=== PATIENT | male | born 1950 | race Caucasian/White ===

== ENCOUNTER 2023-02-19 06:10 | Day surgery (SDC) | payer MEDICARE, BC, SELFPAY ==
[2023-02-19] MEDS: KETOROLAC OPHTH 0.5% 1 DROP EYE-RIGHT ×3 (06:24→06:57)
[2023-02-19] MEDS: TETRACAINE 0.5% OPHTH 1 DROP EYE-RIGHT ×2 (06:24→06:40)
[2023-02-19 06:36] VITALS: BP 124/55; PULSE 62; RESP 16; TEMP 36.3; O2SAT 96
[2023-02-19 06:37] VITALS: BMI 37.9
--- NOTE | 2023-02-19 06:57 | SUR.PREOP ---
The eye drops brought by the patient (Ketorolac and Prednisolone) are examined and I have determined they are labeled by the patient's pharmacy for this patient as prescribed by the surgeon. The bottles are intact, recently obtained and appear to be correct. Shree MEJIA
[2023-02-19] MEDS: SODIUM CHLORIDE 0.9 % (FLUSH) 10 ML SYRINGE IVF (07:03)
[2023-02-19] MEDS: TETRACAINE 0.5% OPHTH 2 DROP EYE-RIGHT (07:12)
[2023-02-19] MEDS: TETRACAINE 0.5% OPHTH 2 DROP EYE-LEFT (07:12)
[2023-02-19] MEDS: BALANCED SALT IRRIG SOLN 15 ML EYE-RIGHT (07:20)
--- NOTE | 2023-02-19 07:22 | P.ANES_ITS ---
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
--- NOTE | 2023-02-19 07:29 | SUR.OPER ---
DURING RIGHT EYE PREP, BETADINE SOLUTION DRIPPED IN TO PATIENTS LEFT EYE. Holly CROSS GAVE THE VERBAL ORDER TO APPLY TETRACAINE, TWO DROPS IN PATIENTS LEFT EYE TO PROVIDE PAIN RELIEF. SEE MAR FOR DRUG DETAILS.
[2023-02-19 07:48] VITALS: BP 134/66; PULSE 61; RESP 16; TEMP 36.6; O2SAT 96
--- NOTE | 2023-02-19 08:07 | W.ANESCHARGE ---
Anesthesia Charges Start Date/Time Anesthesia Start Date: 02/19/23 Anesthesia Start Time: 07:07 Stop Date/Time Anesthesia Stop Date: 02/19/23 Anesthesia Stop Time: 07:48 Summary Extremes of Age - Over 70 or under 1: MDA
--- NOTE | 2023-02-19 10:22 | P.OPTPRC_ITS ---
Procedure Note Date of procedure: 02/19/[address] [facility] bill your pro fee for this procedure?: Yes Procedure Description: SURGEON: Luzma Smith MD PREOPERATIVE DIAGNOSIS: Nuclear sclerotic cataract, right eye. POSTOPERATIVE DIAGNOSIS: Nuclear sclerotic cataract, right eye. NAME OF OPERATION: Phacoemulsification of cataract with posterior chamber intraocular lens implantation in the right eye. ANESTHESIA: Topical. ESTIMATED BLOOD LOSS: Less than 2 cc. COMPLICATIONS: None. PATHOLOGY SPECIMEN: None. INDICATIONS: See consult note for details. The risks, benefits and alternatives of the procedure were explained to the patient, who elected to proceed and s igned informed consent to do so. PROCEDURE: The patient was brought to the pre-holding area where the right eye was identified as the operative eye. I placed my initials above this eye. The patient received eye drops consisting of 0.5% tetracaine, 1% tropicamide, 10% phenylephrine, and 0.5% ketorolac. The patient was then brought to the operating room where the right eye was again identified as the operative eye. The eye was prepped with Betadine and draped in the usual sterile ophthalmic fashion. A #15 super-sharp blade was used to create a paracentesis site. 1% non-preserved intracameral lidocaine was injected into the anterior chamber. Endocoat was injected into the anterior chamber. A 2.4 mm keratome was used to create a three-plane self-sealing incision 1 mm anterior to the temporal limbus. A cystotome was used to create an anterior capsular leaflet. The Utrata forceps were used to extend this to form a continuous curvilinear capsulorrhexis. Hydrodissection was performed. The cataract was removed with phacoemulsification using the [id number] technique. The irrigation and aspiration tip was used to remove the remaining cortex. Healon was injected into the capsular bag. An LOUIS ZCB00 intraocular lens of 12.5 diopters was injected into the capsular bag. The irrigation and aspiration tip was used to remove the remaining viscoelastic. Balanced salt solution on a cannula was used to hydrate the wound, and the wound was found to be watertight. The pupil was noted to be round. DISPOSITION: The patient was taken to the recovery room and discharged to home in stable condition. The patient was instructed to call me or go to the emergency department with any sudden change, including dramatic loss of vision, severe pain in the eye or eyebrow region, nausea, or vomiting. The patient will follow up in the clinic tomorrow morning.
== END 2023-02-19 08:08 | disposition home or self-care (01) ==
PROVIDERS: PCP Family Medicine; Visit Provider Ophthalmology
PROC: (CPT 66984; principal; 2023-02-19 06:15)
DX: H25.11 Age-related nuclear cataract, right eye (principal)
CPT/HCPCS: 66984; 00142; 82962; 99100; J2250; J3010; V2632

== ENCOUNTER 2025-02-25 09:08 | Outpatient (CLI) | payer MEDICARE, BC, SELFPAY ==
--- NOTE | 2025-02-25 11:09 | P.ANES_ITS ---
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
--- NOTE | 2025-02-25 11:09 | W.ANESCHARGE ---
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
--- NOTE | 2025-02-25 11:44 | P.ANES_ITS ---
Anesthesia Charges Start Date/Time Anesthesia Start Date: 02/25/25 Anesthesia Start Time: 10:31 Stop Date/Time Anesthesia Stop Date: 02/25/25 Anesthesia Stop Time: 11:08 Summary Extremes of Age - Over 70 or under 1: MDA Coding CPT Codes CPT Codes: ANES LWR INTST SCR COLSC - 76775 ([id number]) QK - MVA REACTOR OPERATOR HEAD 2-4 CNCRNT ANES PROC, QX - PASTORAL MINISTRIES PROFESSOR SVC W/ MD MED DIRECTION, P3 - PATIENT W/SEVERE SYS DISEASE Additional Codes: Summary - Extremes of Age - Over 70 or under 1: MDA ([id number])
--- OUTSIDE RECORDS SUMMARY | 2025-02-26 00:49 | XMS_ITS | Clinical Summary ---
Author Organization [facility] Address [address] [place] [address] Care Team Providers Care Corporate Safety Coordinator Name Role Phone Tommie Mckeon MD Primary Care Provider Jasmin Alonso CASINO DUTY MANAGER Unavailable [phone] Allergies Active Allergy Reactions Criticality Noted Date Comments Codeine 11/15/2006 jitters Lisinopril Hyperkalemia 11/03/2017 Triamterene Other - Describe In Comment Field 04/14/2013 Mildly elevated potassium Medications B COMPLEX 1 TAB take 1 po daily 01/25/20 09 Active cholecalciferol (VITAMIN D) 1,000 unit tablet Take 1 tablet by mouth once daily. 0 11/28/19 11 Active lancetsIndication s:Type 2 diabetes mellitus without complication, without long-term current use of insulin (HC) Dispense item covered by pt ins. E11.9 NIDDM type II - Test 3 times a day 3 days a week 100 Each 3 10/16/19 17 Active blood-glucose meterIndications: Type 2 diabetes mellitus without complication, without long-term current use of insulin (HC) Dispense meter, test strips, lancets covered by pt ins. E11.9 NIDDM type II - Test 3 times a day 3 days a week 1 Device 10/16/19 17 Active EASY TOUCH 32 gauge x 1/4Indications:L ow testosterone USE TO ADMINISTER VICTOZA ONCE DAILY 24 Each 10/14/19 18 Active Insulin [place], Disposable, (Pen Needle) 32 gauge x 32Indications: Type 2 diabetes mellitus without complication, without long-term current use of insulin (HC) As directed. Remove the 2 covers on the insulin pen needle before administering insulin dose. 100 Each 3 11/20/19 23 Active CPAPIndications:O bstructive sleep apnea Replacement CPAP machine for home use at pressure: 6-12.8 cmw , Heated humidifier x 1 q 5 yr, Humidifier chamber x 1 q 6 mo, Full face mask x1 q 3mos, with cushion x 1 q mo, Heated tubing x 1 q 3 mo, Headgear x 1 q 6 mo, Filters: Disposable x 2 q mo non-disposable filters x1 q 6mo, Length of Need: 99 months, Frequency of use: Daily 1 Each 11 05/13/20 23 Active Roxie Disp [place] 61Io6-1/2 22 gauge x 1 09/09 ndleIndications:L ow testosterone USE DIRECTED TO ADMINISTER TESTOSTERONE EVERY 2 WEEKS 6 Each 3 07/21/20 23 Active fluticasone (50 mcg per actuation) nasal solution (FLONASE)Indicati ons:Rhinitis, unspecified type Inhale 2 Sprays to both nostrils once daily. 16 g 3 09/11/19 24 Active atorvastatin (LIPITOR) 40 mg tabletIndications :Mixed hyperlipidemia Take 1 Tablet (40 mg) by mouth once daily. 90 Tablet 3 06/17/20 24 Active buPROPion (WELLBUTRIN SR) 200 mg sustained-release tabletIndications :Adjustment disorder with depressed mood Take 1 Tablet (200 mg) by mouth two times daily. 180 Tablet 3 06/17/20 24 Active FLUoxetine (PROZAC) 20 mg capsuleIndication s:Adjustment disorder with depressed mood TAKE FOUR CAPSULES BY MOUTH ONCE EVERY DAY IN THE MORNING. 360 Capsule 3 06/17/20 24 Active hydroCHLOROthiazi de 25 mg tabletIndications :Hypertension, unspecified type Take 1 Tablet (25 mg) by mouth once daily. 90 Tablet 3 06/17/20 24 Active testosterone cypionate (DEPO-TESTOSTERON E) 200 mg/mL injectionIndicati ons:Low testosterone INJECT 1 ML INTRAMUSCULARLY EVERY TWO WEEKS DIRECTED 10 mL 2 06/25/20 24 Active Syringe with Cannula,Disposabl 3 mL 18 x 1 syrgIndications:L ow testosterone use to draw up testosterone from the vial every 2 weeks 10 Each 3 06/29/20 24 Active Syringe with Needle, Disp, (B-D 3cc Luer-Remedios Syr 25Gx1) 3 mL 25 gauge x 1 syrgIndications:L ow testosterone As directed. 6 Each 3 07/01/20 24 Active needle, disp, 21 g (BD Regular Bevel [place]) 21 gauge x 1 1/2 ndleIndications:L ow testosterone USE DIRECTED TO DRAW UP TESTOSTERONE EVERY 2 WEEKS 7 Each 3 08/17/20 24 Active polyethylene glycol-electrolyt e (GOLYTELY) 236-22.74-6.74 -5.86 gram suspensionIndicat ions:Encounter for screening colonoscopy Drink 2 liters (half the bottle) the day before colonoscopy and 2 liters (remaining prep) 6 hours prior to colonoscopy appointment. 4000 mL 10/01/19 25 Active albuterol HFA (Ventolin HFA) 90 mcg/actuation inhalerIndication s:Bronchospasm Inhale 1-2 Puffs by mouth every 4 hours while awake. 18 g 3 12/21/19 25 Active metFORMIN 1,000 mg tabletIndications :Type 2 diabetes mellitus without complication, without long-term current use of insulin (HC) Take 1 Tablet (1,000 mg) by mouth two times daily with meals. 180 Tablet 1 12/21/19 25 Active pioglitazone 30 mg tabletIndications :Type 2 diabetes mellitus without complication, without long-term current use of insulin (HC) Take 1 Tablet (30 mg) by mouth once daily. 90 Tablet 1 12/21/19 25 Active CPAPIndications:O SA (obstructive sleep apnea) Replacement CPAP (E0601) machine for home use at pressure: 6-13 , Choice of mask (A7030 or A7034) w/full face cushion (A7031) x1/mo, nasal cushion (A7032) x2/mo, or nasal pillows (A7033) x 2/mo; Length of Need: 99 months; Frequency of use: Daily 1 Each 11 01/05/20 25 Active blood sugar diagnostic (Prodviy No Coding) stripIndications: Type 2 diabetes mellitus without complication, without long-term current use of insulin (HC) USE TO TEST BLOOD GLUCOSE THREE TIMES DAILY, THREE DAYS PER WEEK DIRECTED 300 Each 3 01/22/20 25 Active glipiZIDE extended-release 10 mg Extended-Release tabletIndications :Type 2 diabetes mellitus without complication, without long-term current use of insulin (HC) Take 2 Tablets (20 mg) by mouth once daily. 180 Tablet 02/24/20 25 Active glipiZIDE extended-release 10 mg Extended-Release tabletIndications :Type 2 diabetes mellitus without complication, without long-term current use of insulin (HC) Take 2 Tablets (20 mg) by mouth once daily. 180 Tablet 1 12/21/19 25 2024 Disconti nued(*Av ailabili ty/Formu madhu change/C ost of medicati on) Active Problems Problem Noted Date Diagnosed Date Type 2 diabetes mellitus wit h diabetic neuropathy, without long-term current use of insulin 09/11/2023 Adenomatous colon polyp 10/28/2019 Overview (02/25/2025): Colonoscopy 10/2019 polyps, repeat in 5 years with Peg 8L Colonoscopy 02/2025 normal , repeat in 5 years with PEG 8L Controlled type 2 diabetes m ellitus with complication, without long-term current use of insulin 06/11/2017 KENN 1999 at [facility] [id number] 05/19/2017 Hypogonadism in male 05/30/2015 Morbid obesity 11/15/2006 Other and unspecified hyperlipidemia 11/15/2006 Major depressive disorder, single episode, moder ate 11/15/2006 Unspecified essential hypertension 11/15/2006 Proteinuria 11/15/2006 Resolved Problems Problem Noted Date Diagnosed Date Resolved Date Melanoma of back 12/20/2013 01/21/2023 Dysthymia 04/13/2009 07/12/2019 Type II or unspecified type diabetes mellitus with neurological manifestations, uncontrolled(250.62) 11/15/2006 06/11/2017 Impotence of organic origin 11/15/2006 08/22/2022 DIABETES TYPE II WITHOUT COM PLICATIONS OR UNSPECIFIED 08/12/2003 06/11/2017 Encounters Date Type Department Care Team Description 02/25/2025 9:00 AM CDT Office Visit [facility] at [facility] [address] [facility] [place] [phone] Alvarez Sifuentes MD Arrived 02/25/2025 Travel 02/22/2025 Refill [facility] [address] [facility] [place] [address] Tommie Mckeon MD Refill Request (Glipizide Extended-release) 02/08/2025 9:40 AM CDT Office Visit [facility] [address] [place] [address] Tommie Mckeon MD Preoperative Exam (DOS: 02/25/2025, colonoscopy, Dr. Sifuentes, [facility]); Derm Problem (Check spots on ears) 02/08/2025 Travel 01/19/2025 Refill [facility] [address] [place] [address] Tommie Mckeon MD Refill Request (Prodigy No Coding) 01/04/2025 3:00 PM CDT Telemedicine [facility] [address] [place] [address] [phone] Jasmin Alonso, CASINO DUTY MANAGER Telehealth 01/04/2025 Travel 12/20/2024 9:15 AM CDT Office Visit [facility] [address] [place] [address] Tommie Mckeon MD Diabetes (6 month follow up) 12/20/2024 Travel 12/16/2024 8:45 AM CDT Orders Only [address] [address] Lab, [facility] 12/16/2024 Travel 12/09/2024 Refill [facility] [address] [place] [address] Tommie Mckeon MD Refill Request (Metformin) from Last 3 Months Immunizations Immunization Administration Dates Next Due Influenza, High-dose Inactivated 09/19/2016 Influenza, High-dose Quadriv alent Inactivated 08/25/2020 Influenza, IIV3 (Age 6-35 mos) 05/15/2011 Influenza, IIV3 (Age >=3 years) 08/25/20 13,05/08/2012,05/15/2011,2009,07/23/2008,08/28/2006,06/26/2005,1 ,08/23/2003 Influenza, IIV4 05/30/2015,05/24/2014 Influenza, Inactivated IIV3 (Age 65+ Years) Preserv Free 07/12/2019,06/25/2018,06/11/2017 Pneumococcal Poly,23-Valent (Pneumovax) 06/11/2017,07/20/2010 Pneumococcal conj 13-Valent (Prevnar 13) 02/07/2016 Td (Age >=7 Years) 09/08/1995 Td, Preservative Free (age > = 7 Years) 06/25/2018 Tdap 01/12/2008 Varicella Vaccine 06/08/2015 Zoster (Zostavax-ZVL, live) 07/13/2015 Family History Medical History Relation Name Comments Other Father cirrhosis of li alpa due to chemical exposure Diabetes Mother Heart Disease Mother Anesthesia Problem Neg. Lung cancer Sister [id number] Cancer-colon No Family History Cancer-prostate No Family History Relation Name Status Comments Father Mother Neg. Sister lung cancer Social History Tobacco Use Types Packs/Day Years Used Date Smoking Tobacco: Former Cigarettes Q uit: 09/08/1981 Smokeless Tobacco: Never Tobacco Cessation:Counseling Given: No Alcohol Use Standard Drinks/Week Comments Not Currently 0 (1 standard drink = 0.6 oz pur e alcohol) maybe 1 beer a week PHQ-2 Answer Date Recorded PHQ-2 TOTAL SCORE 1 09/11/2023 Social Connections Answer Date Recorded Do you often feel lonely or isolated from those around you? 0 03/12/2024 Financial Resource Strain Answer Date R ecorded Difficulty of Paying Living Expenses 3 03/12/2024 Difficulty of Paying Living Expenses Not on file 03/12/2024 Food Insecurity Answer Date Recorded Do you worry your food will run out before you are able to buy more? 1 03/12/2024 Transportation Needs Answer Date Record ed Does lack of transportation keep you from medica l appointments? 1 03/12/2024 Does lack of transportation keep you from work, meetings or getting things that you need? 1 03/12/2024 Housing Stability Answer Date Recorded What is your housing situation today? 1 03/12/2024 Utilities Answer Date Recorded Do you have trouble paying f or utilities (for example, heat, electricity, water, phone)? 1 03/12/2024 Sex and Gender Information Value Date Recorded Sex Assigned at Male 03/14/2020 12:45 PM CDT Legal Sex Male 5:25 AM DAG COATER Gender Identity Not on file Sexual Orientation Not on file Obstetrics History Last Filed Vital Signs Vital Sign Reading Time Taken Comments Blood Pressure 125/60 02/08/2025 9:58 AM CDT Pulse 83 02/08/2025 9:48 AM CDT Temperature 36.6 C (97.8 F) 04/01/2023 9:40 AM CDT Respiratory Rate 18 04/01/2023 9:40 AM CDT Oxygen Saturation 98% 02/08/2025 9:48 AM CDT Inhaled Oxygen Concentration - - Weight 123.4 kg (272 lb) 02/08/2025 9:48 AM CDT Height 175.8 cm (5' 9.21) 02/08/2025 9:48 AM CD T Body Mass Index 39.92 02/08/2025 9:48 AM CDT Plan of Treatment Upcoming Encounters Date Type Department Care Team (Late st Contact Info) Description 03/21/2025 11:45 AM CDT Office Visit [facility] [address] [place] [address] Tommie Mckeon MD [address] [place] [address] 07/19/2025 11:00 AM DAG COATER Cardiac Device Check [facility] [place] [facility] [address] [place] [phone] Health Maintenance Due Date Last Done Comments RSV vaccine for adults or (1 - Risk 60-74 years 1-dose series) 2010 Zoster (shingles) series for age 50+ (2 of 3) 09/07/2015 07/13/2015 COVID-19 vaccine series ( season) 2024 Depression screening for age 12+ 09/11/2024 09/11/2023, 08/22/2022, 03/05/2021, Additional history exists Medicare Wellness for age 65+ 09/11/2024 09/11/2023, 08/22/2022, 07/12/2019, Additional history exists Influenza Vaccine (Season Ended) 2025 07/12/2019, 06/25/2018, 06/11/2017, Additional history exists BMI (ht and wt on same day) for age 18+ 02/08/2026 02/08/2025, 09/11/2023, 01/21/2023, Additional history exists Tetanus booster 06/25/2028 06/25/2018, 02/2008, 09/08/1995 Lipids for age 45-75 06/14/2029 06/14/2024, 08/29/2023, 08/21/2022, Additional history exists Colonoscopy through age 75 02/25/203002/25, 02/25/2025, 10/27/2019, Additional history exists Tdap Completed 01/12/2008 Hepatitis C screening for age 18-79 Completed 02/07/2016 Pneumococcal series for age 50+ Completed 06/11/2017, 02/07/2016, 07/20/2010 AAA screening age 65-74 Completed 09/23/2023 Hepatitis B series for 19+ Aged Out N o longer eligible based on patient's age to complete this topic Medical Devices Implanted Type Area Clutch Mechanic Device Identifier Shelf Expiration Date Model / Serial / Lot Dual Chamber Pacemaker Implanted:09/2008 (Quantity not on file) Standard Pacemaker Medtronic ADAPTA L [id number] / [id number] / Procedures Procedure Name Priority Date/Time Associated Diagnosis Comments COLONOSCOPY SCREENING Routine 02/25/2025 7:17 AM CDT Encounter for screening colonoscopy URINE ALBUMIN TO CREATININE RATIO, RANDOM Routine 12/16/2024 9:18 AM CDT Type 2 diabetes mellitus without complication, without long-term current use of insulin (HC) TESTOSTERONE,TOTAL Routine 12/16/2024 9: 10 AM CDT Hypogonadism in male HEMOGLOBIN A1C MONITORING (POCT) Routine 12/16/2024 9:08 AM CDT Type 2 diabetes mellitus without complication, without long-term current use of insulin (HC) LIPID PANEL W REFLEX MEASURED LDL Routine 06/14/2024 9:04 AM CDT Type 2 diabetes mellitus without complication, without long-term current use of insulin (HC) US AORTA Routine 09/23/2023 11:59 AM DAG COATER Screening for AAA (abdominal aortic aneurysm) ANTI HCV Routine 02/07/2016 11:09 AM CDT Need for hepatitis C screening test from Last 3 Months or Most Recently Relevant to Health Maintenance Results * (ABNORMAL) URINE ALBUMIN TO CREATININE RATIO, RANDOM (12/16/2024 9:18 AM CDT) ALB RAND URINE 45.5 mg/L 12/16/2024 2:12 PM CDT [facility] CREATININE,URIN E 0.65 g/L 12/16/2024 2:12 PM CDT [facility] ALBUMIN TO CREATININE RATIO,RAND UR 70.0(H) <30.0 mg/g creat 12/16/2024 2:12 PM CDT [facility] Urine URINE SPECIMEN / Unknown Non-Blood / Unknown 12/16/2024 9:18 AM CDT 12/16/2024 9:18 AM CDT Narrative [facility] - 12/16/2024 2:12 PM CDT If Albumin to Creatinine Ratio is elevated, consider the following: Elevations seen with incipient nephropathy associated with diabetes mellitus or hypertension. Stress, exercise,hematuria, and urinary tract infection may also produce elevated results. If clinically indicated, confirm with 24 Hour Albumin to Creatinine Ratio. Tommie Mckeon MD URINE Final Result [facility] [address] [place] [address], * TESTOSTERONE,TOTAL (12/16/2024 9:10 AM CDT) TESTOSTERONE, TOTAL, MS 288 250 - 1,100 ng/dL [facility] Comment: Men with clinically significant hypogonadal symptoms and testosterone values repeatedly in the range of the 200-300 ng/dL or less, may benefit from testosterone treatment after adequate risk and benefits counseling. For additional information, please refer to https://education.Camera360/faq/TotalTestosteroneLCMSMS (This link is being provided for informational/educational purposes only.) (Note) This test was developed and its analytical performance characteristics have been determined by [facility]. It has not been cleared or approved by the FDA. This assay has been validated pursuant to the CLIA regulations and is used for clinical purposes. [facility] [address] [address],[address] [place] [address] Razia Queen MD, PhD Blood BLOOD SPECIMEN / Unknown 12/16/2024 9:10 AM CDT 12/16/2024 9:10 AM CDT Tommie Mckeon MD CHEMISTRY Final Result [facility] [address] [place] [phone], [facility] [address] [place] [address], [address] [place] [phone] * (ABNORMAL) HEMOGLOBIN A1C MONITORING (POCT) (12/16/2024 9:08 AM CDT) Pathologist [facility] POC HEMOGLOBIN A1C 8.5(H) <6.0 % OF TOTAL HGB [facility] Comment: Any point of care results exhibiting inconsistency with the patient's clinical status should be repeated using a different testing method. Blood BLOOD SPECIMEN / Unknown 12/16/2024 9:08 AM CDT 12/16/2024 9:09 AM CDT Tommie Mckeon MD CHEMISTRY Final Result [facility] [address] [place] [address], [place] [phone] [facility] [address] [place] [address] * LIPID PANEL W REFLEX MEASURED LDL (06/14/2024 9:04 AM CDT) CHOLESTEROL, TOTAL 115 <200 mg/dL [facility] HDL CHOLESTEROL 54 > OR = 40 mg/dL [facility] TRIGLYCERIDES 74 <150 mg/dL [facility] LDL-CHOLESTEROL 46 mg/dL (calc) [facility] Comment: Reference range: <100 Desirable range <100 mg/dL for primary prevention; <70 mg/dL for patients with CHD or diabetic patients with > or = 2 CHD risk factors. LDL-C is now calculated using the Sanjay calculation, which is a validated novel method providing better accuracy than the Friedewald equation in the estimation of LDL-C. Alvarez SS et al. NATANAEL. 2013;310(19): 3901-2305 (http://education.BYNDL Inc./faq/PBU445) CHOL/HDLC RATIO 2.1 <5.0 (calc) [facility] NON HDL CHOLESTEROL 61 <130 mg/dL (calc) [facility] Comment: For patients with diabetes plus 1 major ASCVD risk factor, treating to a non-HDL-C goal of <100 mg/dL (LDL-C of <70 mg/dL) is considered a therapeutic option. Blood BLOOD SPECIMEN / Unknown 06/14/2024 9:04 AM CDT 06/14/2024 9:04 AM CDT Tommie Mckeon MD CHEMISTRY Final Result [facility] [address] [place] [address], [facility] [address] [place] [phone] * US AORTA (09/23/2023 11:59 AM DAG COATER) Anatomical Region Laterality Modality Abdomen, AORTA Ultrasound 09/25/2023 6:46 AM DAG COATER Narrative 09/25/2023 6:46 AM DAG COATER For Patients: As a result of the Cures Act, medical imaging exams and procedure reports are released immediately into your electronic medical record. You may view this report before your referring provider. If you have questions, please contact your health care provider. Examination: US abdominal aorta Indication: Abdominal aortic aneurysm screening. Technique: Og scale and color Doppler images of the aorta and common iliac arteries are obtained. Comparison: None Findings: Proximal aorta: Obscured by bowel gas Mid aorta: 1.8 x 1.9 cm Distal aorta: 1.7 x 1.8 cm Right common iliac artery: 0.9 x 1.2 cm Left common iliac artery: 1.1 x 1.3 cm Impression: No abdominal aortic aneurysm. Dictated by Sav Crump MD @ 09/25/2023 6:46:31 AM (Electronically Signed) Procedure Note Sav Crump MD - 09/25/2023 For Patients: As a result of the Cures Act, medical imagingexams and procedure reports are released immediately into your electronicmedical record. You may view this report before your referring provider.If you have questions, please contact your health care provider. Examination: US abdominal aorta Indication: Abdominal aortic aneurysm screening. Technique: Og scale and color Doppler images of the aorta and common iliac arteriesare obtained. Comparison: None Findings: Proximal aorta: Obscured by bowel gas Mid aorta: 1.8 x 1.9 cm Distal aorta: 1.7 x 1.8 cm Right common iliac artery: 0.9 x 1.2 cm Left common iliac artery: 1.1 x 1.3 cm Impression: No abdominal aortic aneurysm. Dictated by Sav Crump MD @ 09/25/2023 6:46:31 AM (Electronically Signed) Tommie Mckeon MD US Final Result * COLONOSCOPY SCREENING (10/27/2019 10:54 AM DAG COATER) Tommie Mckeon MD GI PROCEDURE ORD Final Result * ANTI HCV [[id number]] (02/07/2016 11:09 AM CDT) HEPATITIS C ANTIBODY Non-Reacti ve Non-Reacti ve 02/07/2016 6:23 PM CDT [facility] Blood specimen (specimen) BLOOD SPECIMEN / Unknown Venipuncture / Unknown 02/07/2016 11:09 AM CDT 02/07/2016 11:10 AM CDT Narrative [facility] - 02/07/2016 6:23 PM CDT Antibodies to HCV not detected; does not exclude the possibility of exposure to HCV. us Tommie Mckeon MD SEND OUTS Final Result [facility] [address] [place] [address], [place] from Last 3 Months or Most Recently Relevant to Health Maintenance Insurance MEDICARE PB ONLY [facility] MEDICARE PART B HB ONLY MEDICARE PART A HB ONLY MEDICARE PART B HB ONLY [facility] Advance Directives * Full Code (Latest Code Status on File) Date Activated Date Inactivated Comments 03/08/2009 6:55 AM 03/09/2009 12:28 PM Care Teams Corporate Safety Coordinator Relationship Specialty Start Date End Date Tommie Mckeon MD [address] [place] [address] PCP - General 05/31/09 Jasmin Alonso NP [address] [address] Sleep Medicine 01/04/25
== END 2025-02-25 09:09 | disposition home or self-care (01) ==
LOC: OP CLINIC 09:10
PROVIDERS: PCP Family Medicine; Visit Provider Internal Medicine Gastroenterology
DX: Z12.11 Encounter for screening for malignant neoplasm of colon (principal); Z86.0100 Personal history of colon polyps, unspecified
CPT/HCPCS: 00812; 45378; 99100; J2704